=== PATIENT | male | born 1985 | race Caucasian/White ===

== ENCOUNTER 2017-01-01 13:32 | Emergency (ER) | payer BC, OTHER ==
[~2017-01-01] VITALS: Ht 180.3 cm; Wt 93.3 kg
[~2017-01-01 13:32] MED LIST: AMLO-114 PO; ASPCH81 PO; LISI-729 PO; METO50TA7 PO; OMEG10007 PO; TACR1CAP PO; [UNRECOGNIZED DRUG - OTHER] PO
[2017-01-01 13:44] VITALS: Ht 180.3 cm; Wt 93.3 kg
[2017-01-01 14:44] VITALS: O2SAT 96
[2017-01-01 14:44] LABS: BASO % 0.3 %; BASO ABS # 0.02 K/uL (0-0.2); COMPLETE YES; HEMATOCRIT 39.8 % (42-52); IG% 0.1 %; LYMPH % 20.4 %; LYMPH ABS # 1.54 K/uL (1.2-3.4); MEAN CELL VOLUME 89.6 fL (80-100); MEAN CORPUSCULAR HGB CONC 33.4 g/dl (32-36); MEAN PLATELET VOLUME 10.9 fL (7.4-10.4); MONO % 7.3 %; NEUT % 66.9 %; PLATELET COUNT 239 K/uL (130-400); RED BLOOD COUNT 4.44 M/uL (4.7-6.1); WHITE BLOOD COUNT 7.55 K/uL (4.8-10.8)
[2017-01-01 15:04] LABS: ALT/SGPT 19 U/L (12-78); AST/SGOT 8 U/L (15-37); BLOOD UREA NITROGEN 33 mg/dl (7-18); BUN/CREATININE RATIO 14.2 (10-20); CALCIUM 9.1 mg/dl (8.5-10.1); CARBON DIOXIDE 25 mmol/L (21-32); CHLORIDE 108 mmol/L (98-107); GLUCOSE 97 mg/dl (70-99); POTASSIUM 4.9 mmol/L (3.5-5.1); SODIUM 138 mmol/L (136-145)
[2017-01-01] MEDS ORDERED: MYCO250C7 PO (15:11)
[2017-01-01] MEDS ORDERED: ASPI-435 PO (15:11)
[2017-01-01] MEDS ORDERED: ERGO1TAB10 PO (15:11)
[2017-01-01] MEDS ORDERED: AMLO-110 PO (15:11)
[2017-01-01] MEDS ORDERED: ZNTT/150 PO (15:11)
[2017-01-01 15:14] LABS: ALB/GLOB RATIO 1.1 (0.9-2); ALKALINE PHOSPHATASE 67 U/L (45-117)
--- NOTE | 2017-01-01 15:18 | DIAGNOSTIC IMAGING REPORT ---
TWO VIEW CHEST CLINICAL HISTORY: Atypical chest pain. FINDINGS: PA and lateral chest radiographs are obtained. No prior studies are available for comparison at the time of dictation. The cardiomediastinal silhouette is unremarkable. There are minimal left basilar airspace opacities. The lungs and pleural spaces are otherwise clear. There is no pleural effusion are pneumothorax. The bony thorax appears intact. Mild thoracic scoliosis is suggested. IMPRESSION: There are minimal left basilar airspace opacities. This could represent atelectasis versus a mild infectious/inflammatory pneumonitis. Clinical correlation will be required. Electronically signed by: Jeramy Banuelos M.D. 01/01/2017 3:16 PM Dictated Date/Time: 01/01/2017 3:15 PM
[2017-01-01] MEDS ORDERED: SODIUM CHLORIDE 0.9% 1000ML 1,000 ML IV STA (15:54)
--- NOTE | 2017-01-01 16:09 | EMERGENCY ROOM VISIT NOTE ---
History First contact with patient: 13:58 Chief Complaint: CARDIAC ASSESSMENT Stated Complaint: TIGHTNESS IN CHEST Nursing Triage Summary: triage note pt reports having burning in chest for two days increases with inspiration denies any radiating called pcp sent here pt hx kidney transplant 2003 History of Present Illness The patient is a 31 year old male who presents to the Emergency Room with complaints of tightness across his chest. The patient states that for the past 2 days, he has had tightness in the front of his chest. He states that the pain has been worse with exertion initially, but now it does not correlate with exertion. He states that the pain had improved yesterday throughout the day, but returned last night. He states that it feels like a "sinking feeling" in his chest. He is unsure whether this could be related to anxiety, but does state that it does make him feel slightly anxious. He reports that the pain has almost completely resolved at this time. The pain has not radiated into the jaw or arm. 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 He receives his creatinine is typically from 1.8- 2.1. The patient denies any shortness of breath, palpitations, abdominal pain, nausea or vomiting. He denies any recent illnesses, cough or fevers/chills. Review of Systems A complete 10-point Review of Systems was discussed with the patient, with pertinent positives and negatives listed in the History of Present Illness. All remaining Review of Systems questions can be considered negative unless otherwise specified. Social History Smoking Status: Never Smoker Current/Historical Medications Scheduled Amlodipine (Norvasc), 5 MG PO DAILY Aspirin (Aspirin 81), 81 MG PO QAM Ergocalciferol (Vitamin D2), 1.25 MG PO MONTHLY Fish Oil ([place]-3), 1,400 MG PO DAILY Lisinopril (Prinivil), 5 MG PO DAILY Metoprolol Succ (Toprol Xl) (Toprol-Xl), 50 MG PO Q12HR Mycophenolate Mofetil (Mycophenolate Mofetil), 750 MG PO QAM Ranitidine (Zantac), 150 MG PO DAILY Tacrolimus (Prograf), 2 MG PO QAM Allergies Coded Allergies: No Known Allergies (Unverified , 01/01/17) Physical Exam Vital Signs Date Time Temp Pulse Resp B/P Pulse Ox O2 Delivery O2 Flow Rate FiO2 01/01/17 16:59 36.9 66 16 136/79 100 01/01/17 15:28 67 16 110/62 99 01/01/17 14:44 96 Room Air 01/01/17 14:35 59 01/01/17 13:48 96 Room Air 01/01/17 13:44 36.9 58 18 129/86 96 Room Air Physical Exam VITALS: Vitals are noted on the nurse's note and reviewed by myself. Vital signs stable. GENERAL: This is a 31-year-old male, in no acute distress, nondiaphoretic, well- developed well-nourished. SKIN: Capillary reflex less than 2 seconds. HEENT: Normocephalic. PERRLA. EOMI. Nares patent. Mucous membranes moist. Neck is supple without nuchal rigidity. HEART: Regular rate and rhythm without murmurs gallops or rubs. LUNGS: Clear to auscultation bilaterally without wheezes, rales or rhonchi. No retractions or accessory muscle use. ABDOMEN: Positive bowel sounds x 4. Soft, nontender to palpation. MUSCULOSKELETAL: No reproducible chest pain. NEURO: Patient was alert and oriented to person place and time. Medical Decision & Procedures ER Provider Diagnostic Interpretation: TWO VIEW CHEST CLINICAL HISTORY: Atypical chest pain. FINDINGS: PA and lateral chest radiographs are obtained. No prior studies are available for comparison at the time of dictation. The cardiomediastinal silhouette is unremarkable. There are minimal left basilar airspace opacities. The lungs and pleural spaces are otherwise clear. There is no pleural effusion are pneumothorax. The bony thorax appears intact. Mild thoracic scoliosis is suggested. IMPRESSION: There are minimal left basilar airspace opacities. This could represent atelectasis versus a mild infectious/inflammatory pneumonitis. Clinical correlation will be required. Laboratory Results 01/01/17 14:28 Red Blood Count 4.44, Mean Corpuscular Volume 89.6, Mean Corpuscular Hemoglobin 30.0, Mean Corpuscular Hemoglobin Concent 33.4, Mean Platelet Volume 10.9, Neutrophils (%) (Auto) 66.9, Lymphocytes (%) (Auto) 20.4, Monocytes (%) (Auto) 7.3, Eosinophils (%) (Auto) 5.0, Basophils (%) (Auto) 0.3, Neutrophils # (Auto) 5.05, Lymphocytes # (Auto) 1.54, Monocytes # (Auto) 0.55, Eosinophils # (Auto) 0.38, Basophils # (Auto) 0.02 01/01/17 14:28 Test 01/01/17 14:28 White Blood Count 7.55 K/uL (4.8-10.8) Red Blood Count 4.44 M/uL (4.7-6.1) Hemoglobin 13.3 g/dL (14.0-18.0) Hematocrit 39.8 % (42-52) Mean Corpuscular Volume 89.6 fL (80-100) Mean Corpuscular Hemoglobin 30.0 pg (25-34) Mean Corpuscular Hemoglobin Concent 33.4 g/dl (32-36) Platelet Count 239 K/uL (130-400) Mean Platelet Volume 10.9 fL (7.4-10.4) Neutrophils (%) (Auto) 66.9 % Lymphocytes (%) (Auto) 20.4 % Monocytes (%) (Auto) 7.3 % Eosinophils (%) (Auto) 5.0 % Basophils (%) (Auto) 0.3 % Neutrophils # (Auto) 5.05 K/uL (1.4-6.5) Lymphocytes # (Auto) 1.54 K/uL (1.2-3.4) Monocytes # (Auto) 0.55 K/uL (0.11-0.59) Eosinophils # (Auto) 0.38 K/uL (0-0.5) Basophils # (Auto) 0.02 K/uL (0-0.2) RDW Standard Deviation 40.9 fL (36.4-46.3) RDW Coefficient of Variation 12.5 % (11.5-14.5) Immature Granulocyte % (Auto) 0.1 % Immature Granulocyte # (Auto) 0.01 K/uL (0.00-0.02) Anion Gap 5.0 mmol/L (3-11) Est Creatinine Clear Calc Drug Dose 54.8 ml/min Estimated GFR () 42.6 Estimated GFR (Non- 36.7 BUN/Creatinine Ratio 14.2 (10-20) Calcium Level 9.1 mg/dl (8.5-10.1) Total Bilirubin 0.5 mg/dl (0.2-1) Aspartate Amino Transf (AST/SGOT) 8 U/L (15-37) Alanine Aminotransferase (ALT/SGPT) 19 U/L (12-78) Alkaline Phosphatase 67 U/L (45-117) Total Creatine Kinase 62 U/L (39-308) Creatine Kinase MB < 0.5 ng/ml (0.5-3.6) Creatine Kinase MB Ratio (0-3.0) Troponin I < 0.015 ng/ml (0-0.045) Total Protein 8.0 gm/dl (6.4-8.2) Albumin 4.2 gm/dl (3.4-5.0) Globulin 3.8 gm/dl (2.5-4.0) Albumin/Globulin Ratio 1.1 (0.9-2) Thyroid Stimulating Hormone (TSH) 1.540 uIu/ml (0.300-4.500) Medications Administered Medications (Trade) Dose Ordered Sig/Steven Route Start Time Stop Time Status Last Admin Dose Admin Sodium Chloride (Nss 1000ml) 1,000 ml @ 999 mls/hr Q1H1M STAT IV 01/01/17 15:54 01/01/17 16:54 DC 01/01/17 16:00 999 MLS/HR ECG Rate (beats per minute): 58 Rhythm: sinus bradycardia Findings: ST elevation (consistent with early repolarization), no ectopy Comparison ECG Date: no prior available ED Course The patient was evaluated as above. Labs were drawn and IV access was obtained. Chest x-ray was performed and read by radiology as above. Patient was reevaluated and findings were discussed. The patient remained a [place]. He was given 1 L normal saline solution. Discharge instructions were reviewed with the patient. The patient verbalized understanding of my assessment and treatment plan and was discharged home in good condition. Medical Decision Differential diagnosis includes acute coronary syndrome, pulmonary embolism, pneumothorax, pericarditis, myocarditis, endocarditis, anxiety, musculoskeletal pain, GERD, costochondritis, pneumonia, among others. The patient is a 31-year-old male who presents today complaining of resolved chest pain. Labs revealed no leukocytosis or anemia. Creatinine is 2.30, which is just above baseline for the patient. The BUN is also elevated at 33, consistent with dehydration. This is likely the cause of the patient's elevated creatinine. He was hydrated with 1 L normal saline solution. EKG shows diffuse mild ST elevation consistent with early repolarization. Cardiac enzymes are negative. Given the duration of the patient's pain, I would certainly expect that they would be elevated at this point if this were cardiac in nature. The patient does admit to feeling anxious and I feel there is likely a large component of anxiety to the symptoms. I did recommend that he follow-up closely with his primary care provider and return here for any worsening of the symptoms. He was agreeable to this treatment plan. The patient's case was reviewed with Dr. Ricardo, ED attending physician, who agreed with my assessment and treatment plan. Based on the patient's presentation and work up, I feel the patient is stable for outpatient treatment. The patient was educated to the emergency department for any worsening of their current condition or new/concerning symptoms. He will follow up with his primary care provider. Impression Primary Impression: Substernal chest pain Departure Information Dispostion Home / Self-Care Condition GOOD Referrals Gaurav Good MD (PCP) Patient Instructions My [facility] [address] Additional Instructions You have been treated in the Emergency Department for your Chest Pain. Laboratory results and Imaging Studies have ruled out any acute cardiac or pulmonary cause of your chest pain. Your creatinine was slightly elevated, likely due to dehydration. You should have this rechecked by her primary care provider. For pain control, you can use the following [id number] medicines (if >12 yo): - Regular strength (325mg/tab) Tylenol (acetaminophen) 2 tabs every 4-6 hours as needed. Do not exceed 12 tablets in a 24 hour period. Avoid taking more than 4 grams (4000 mg) of Tylenol per day. This includes any other sources of acetaminophen you may take on a regular basis. - Regular strength (200 mg/tab) Advil (ibuprofen) 1-2 tabs every 4-6 hours as needed. Do not exceed a dose of 3200 mg per day. You should schedule a follow-up appointment with your Primary Care Provider in 2 -3 days for further evaluation from today's Emergency Department visit. Return to the Emergency Department if your current symptoms worsen despite treatment course outlined above, or if you develop any of the following symptoms : worsening chest pain, associated jaw/arm pain, nausea, dizziness, shortness of breath, bloody cough, or fainting.
[2017-01-01 16:59] VITALS: BP 136/79; PULSE 66; TEMP 36.9; O2SAT 100
== END 2017-01-01 17:01 | disposition home or self-care (01) ==
LOC: C.EDB 13:33
DX: R07.2 Precordial pain (principal); Z94.0 Kidney transplant status; Z79.82 Long term (current) use of aspirin; Z79.899 Other long term (current) drug therapy